=== PATIENT | female | born 1985 | race Caucasian/White ===

== ENCOUNTER 2024-09-12 14:46 | Day surgery (SDC) | payer OTHER, SELFPAY ==
[2024-09-12] VITALS (16 sets, daily range): BP systolic 100–125; BP diastolic 58–82; BMI 28.5; BMI 29.3
--- NOTE | 2024-09-12 09:27 | ED.GENMED ---
History of Present Illness
General
Chief Complaint: Abdominal Symptoms
Source: patient
Exam Limitations: none
Time Seen by Provider: 09/12/24 09:16
Nursing documentation reviewed up to this point in time: agreed with
History of Present Illness
History of Present Illness:
Patient is a 39-year-old female presenting to the emergency department with 12 hours of nausea, vomiting and upper abdominal pain. Patient states symptoms started around 830 last night when she returned from work. She has had persistent nausea,
vomiting, as well as a few episodes of diarrhea since. She is unable to tolerate any p.o. intake. She also endorses mild pain in her right upper abdomen. No radiation of pain into the back. The symptoms started prior to patient eating dinner and
states she had Ramen noodles for lunch at work yesterday. No fevers or chills. Patient denies any dysuria although states her urine is 'cloudy '.
Patient denies any history of similar symptoms. No known sick contacts.
LMP 2 weeks ago
Past History
Past History
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
ED Past Surgical History: Orthopedic
Social History
Tobacco: Non-smoker
Drug: None
Review of Systems
Review of Systems
Allergies reviewed?: Yes
All Other Systems: ROS reviewed and negative except as documented in HPI and ROS
Phy Exam
Physical Exam
Physical Exam:
Vitals: Mildly tachycardic, otherwise vital signs stable. Afebrile
General: Patient is in no acute distress.
Skin: Warm and dry, no rashes or lesions
Head: Normocephalic, atraumatic
Eyes: Sclera nonicteric. EOMs intact. No nystagmus.
Throat: Protecting airway
Neck: Normal ROM, no cervical spine tenderness, no meningismus
Cardiac: Mildly tachycardic, normal rhythm, no murmurs.
Pulm: Normal respiratory effort, no wheezes, rales, rhonchi heard on exam.
Abdomen: Abdomen soft. Mild tenderness in right upper quadrant and right mid abdomen without rebound tenderness or guarding. Negative Jacome sign. No CVA tenderness.
Extremities: No evidence of cyanosis or edema
Neuro: AAOx3. Grossly intact.
Psychiatric: Normal affect.
Course
Orders/Labs/Results
Orders:
Orders
09/12/24 09:26
0.9% Sodium Chloride 1000 ml [Nss] 1,000 ml IV BOLUS
Ketorolac [Toradol] 15 mg IV NOW STA
Ondansetron Injectable [Zofran] 4 mg IV NOW STA
Test Result ONCE
US Abdomen Complete/Upper Urgent
Comment:
Reason For Exam: RUQ pain, N+V
09/12/24 09:30
Complete Blood Count/With Diff Urgent
Comprehensive Metabolic Panel Urgent
HCG, Serum Qualitative Screen Urgent
Lipase Urgent
09/12/24 09:31
Urinalysis Reflex To Culture Urgent
Date Specimen was Collected: 09/12/24
Time Specimen was Collected: 09:30
Urine Microscopic Reflex Cult Urgent
Urine Culture Urgent
VENKATESH Source: U
Specimen Description:
Date Specimen was Collected: 09/12/24
Time Specimen was Collected: 09:30
09/12/24 11:55
CT Abd/pelvis W Iv Cont Urgent
Comment:
Reason For Exam: RLQ pain, +n/+V
09/12/24 13:39
Piperacillin/Tazo 3.375 Gram [Zosyn] 3.375 gram in 50 ml IV NOW
09/12/24 13:53
SURGICAL CONSULT Urgent
Consulting Provider: Bj Flynn
Was physician already notified: Yes
09/12/24 14:54
HYDROmorphone [Dilaudid] 0.25 mg IV PACU-Q5MPRN PRN
HYDROmorphone [Dilaudid] 0.5 mg IV PACU-Q5MPRN PRN
Meperidine [Demerol] 12.5 mg IV PACU-Q5MPRN PRN
Ondansetron Injectable [Zofran] 4 mg IV PACU-ONCEPRN PRN
Notify MD As Directed
Notify physician if: for SDS patients with known or suspected sleep obstructive sleep apnea, monitor in the
PACU.
Notify MD for any apneic/desaturation episodes
O2 Therapy [RESP] Urgent
Titrate/Wean O2 to maintain O2 sat greater than (%): 92
Special Instructions: -Provide supplemental oxygen to achieve O2 sat of 92% or greater.
-After 15 min, may wean O2 and discontinue if patient is able to maintain O2 sat of 92%
or greater during recovery period.
If patient is a discharge home, without oxygen therapy, notify anestheiologist if
unable to maintain O2 SAT of 92% or greater on room air for MD clearance.
09/12/24 Dinner
Regular
Normosol (Mult Electrolytes) [Normosol-R/Plasmalyte-A] 1,000 ml IV PER PROTOCOL
09/12/24 15:35
Bupivacaine 0.5%Pf/Epinephrin [Sensorcain-Mpf Epi 0.5%-0.0005] 30 ml .ROUTE .STK-MED ONE
09/12/24 15:40
OR Pathology Routine
Pre-Operative Diagnosis: Acute Appendicitis
Operative Procedure: Laparoscopic Appendectomy
Surgeon: Gee
Circulating Nurse: Jaqueline
Specimen Type: Appendix
09/12/24 15:52
Fentanyl Citrate/Pf [Sublimaze] 100 mcg .ROUTE .STK-MED ONE
09/12/24 15:59
Lidocaine HCl/Pf [Xylocaine-Mpf 1% Vial] 50 mg .ROUTE .STK-MED ONE
Phenylephrine HCl/0.9% NaCl [Tru-Synephrine] 1,000 mcg .ROUTE .STK-MED ONE
Propofol [Diprivan] 20 ml .ROUTE .STK-MED
Rocuronium [place] [Rocuronium] 50 mg .ROUTE .STK-MED ONE
09/12/24 16:00
Dexamethasone Sod Phosphate [Decadron] 20 mg .ROUTE .STK-MED ONE
Metoclopramide [Reglan] 10 mg .ROUTE .STK-MED ONE
Ondansetron Injectable [Zofran] 4 mg .ROUTE .STK-MED ONE
09/12/24 16:01
Admit Patient As Directed
Co-Sign Provider:
Level of Care: Post Proc/Surg Recovery
Assign to:: Medical/Surgical
Physician / Group: Gee
Diagnosis: Acute appendicitis
Reason for Overnight Stay: Vomiting
Code Status As Directed
Resuscitation Status: Full Code
Acetaminophen [Tylenol] 650 mg PO Q4HPRN PRN
Ketorolac [Toradol] 10 mg IV Q6HPRN PRN
Ondansetron Injectable [Zofran] 4 mg IV Q6HPRN PRN
Oxycodone [Roxicodone] 10 mg PO Q4HPRN PRN
Oxycodone [Roxicodone] 5 mg PO Q4HPRN PRN
Activity As Directed
Activity Level: Out of Bed-Early Mobility
Anti-embolism (YANCI) Hose As Directed
Type: Thigh high
Intake/ Output As Directed
Frequency: Per unit guidelines
Pneumatic Compression Sleeves As Directed
Type: Knee high
Vital Signs As Directed
Frequency: Per unit guidelines
PRN Pain Medication Management As Directed
May give lesser potent ordered pain med per pt: Yes
preference::
Protocol:: Medication orders for pain may be administered in a
manner that supports deferring to patient preference
when the pt is:
- Requesting an ordered lesser potent pain medication.
Least to most potent pain medications are defined
as: acetaminophen < NSAID < tramadol < opioids
(morphine, oxycodone, hydromorphone).
- Requesting a lesser dose of the same medication IF
ORDERED.
- Requesting a less intrusive route of administration
if both routes are prescribed by the provider (PO <
IV).
DX Deep Vein Thrombosis Video Routine
09/12/24 16:02
Rx Incentive Spirometry [RESP] Routine
Frequency: q1h while awake
# of times per hour: 10
09/12/24 16:23
HYDROmorphone [Dilaudid] 1 mg .ROUTE .STK-MED ONE
09/12/24 16:26
Ketorolac [Toradol] 30 mg .ROUTE .STK-MED ONE
09/12/24 16:28
Acetaminophen 1000MG/100Ml [Ofirmev] 1,000 mg in 100 ml .ROUTE .STK-MED
09/12/24 18:00
Enoxaparin Sodium [Lovenox] 40 mg SC QPM
Piperacillin/Tazo 3.375 Gram [Zosyn] 3.375 gram in 50 ml IV Q6H
Abnormal Lab Results
09/12/24 09/12/24
09:30 09:31
WBC 14.3 H 10^3/uL
(4.8-10.8)
MPV 11.1 H fL
(7.4-10.4)
Abs Immat Gran (auto) 0.1 H 10^3/uL
(0-0.05)
Absolute Neuts (auto) 12.7 H 10^3/uL
(1.4-6.5)
Absolute Lymphs (auto) 0.8 L 10^3/uL
(1.2-3.4)
Absolute Monos (auto) 0.8 H 10^3/uL
(0.1-0.6)
Neutrophils % 88.6 H %
(42.2-75.2)
Lymphocytes % 5.5 L %
(20.5-51.1)
Creatinine 0.5 L mg/dL
(0.6-1.0)
Glucose 126 H mg/dl
(70-99)
Ur Occult Blood Reflex 1+ A
(Negative)
Urine RBC 3-6 A /HPF
(0-2)
Urine Bacteria (Reflex) Many A
(Negative)
Urine Albumin (Reflex) 2+ A
(Neg - Trace)
09/12/24 09:30
09/12/24 09:30
Vital Signs
Initial and Last Documented VS:
Initial Vital Signs
Temp Pulse Resp BP Pulse Ox
98.3 F 108 16 120/82 100
09/12/24 09:12 09/12/24 09:12 09/12/24 09:12 09/12/24 09:12 09/12/24 09:12
Last Documented Vital Signs
Temp Pulse Resp BP Pulse Ox
98.6 F 96 14 111/58 99
09/12/24 16:50 09/12/24 17:00 09/12/24 17:00 09/12/24 17:00 09/12/24 17:05
MDM/Problems Addressed
Differential Diagnosis Includes:
Not limited to: Viral gastroenteritis, cholelithiasis, cholecystitis, appendicitis, pancreatitis, etc.
MDM/Problems Addressed:
39-year-old female with 12 hours of nausea, vomiting, and right upper quadrant abdominal pain. Also with few episodes of diarrhea. No fevers or chills. No back pain. Mildly tachycardic, otherwise stable vital signs. She is afebrile on arrival.
Physical exam as above. Differential broad at this time although given nausea, vomiting, and diarrhea�this could be viral gastroenteritis. Given mild tenderness on abdominal exam and right upper quadrant�will obtain abdominal ultrasound to rule
out gallbladder etiology. Will send screening labs. Will give IV fluids, Zofran, Toradol and reassess.
Update: Labs reviewed. Labs with a leukocytosis of 14.3. Chemistry without clinically significant abnormalities. Urine does not appear effected. Ultrasound without any acute findings. On reassessment�while patient symptoms are improved and she
has not had any episodes of vomiting since arrival to ED�she does still have mild tenderness to palpation in right mid abdomen. Given persistent tenderness on palpation�will obtain CT scan to rule out acute intra-abdominal pathology.
Update: CT shows acute appendicitis without perforation or abscess. Case discussed with general surgery, Dr. Flynn who will admit to their service. Patient started on Zosyn in emergency department. Her pain remains under well control. Plan for
n.p.o. and OR later today.
Chronic conditions affecting care:
N/A
Acute Exacerbation and/or Progression of Chronic Illness:
Acute appendicitis
*Radiology
Radiology exam reviewed: radiology read reviewed
*Pulse Oximetry
Patient hypoxic: no
*EKG
Interpreted by ED Provider?: NA
*Catalyst Operator Interpretation
Rate: Catalyst Operator- N/A
*Critical Care Note
Total Time (30-74mins, 75-104mins- exclusive of procedures): Not Applicable
Patient Management
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
Escalation/DeEscalation of care consider admission/obs:
Admit for OR today�appendectomy
ED Attending Note
-
Portions of this chart may have been created with voice recognition software.� Occasional wrong word or��sound alike� substitutions may have occurred due to the inherent limitations of voice recognition software.
Discharge Plan
Departure
Patient Disposition: Admit
Date of Disposition: 09/12/24
Time of Disposition: 13:46
Admit to doctor: Dr. Flynn
Presentation/result/management discussed w/ accepting MD/DO: Surgery
Discharge Problem:
Acute appendicitis
Interventions
Interventions:
*Risk Screen - Suicide Last Done: 09/12/24 09:12
*General Assessment Last Done: 09/12/24 09:12
*Neglect/Abuse Screening Last Done: 09/12/24 09:39
*ED- Fall Risk Assessment Last Done: 09/12/24 10:10
*ED COVID-19 Vaccine History Last Done: 09/12/24 09:12
*Nursing Disposition Last Done: 09/12/24 14:41
HF-Njdfyi-Ylixurrznm Assessment Last Done: 09/12/24 09:39
Discharge Date and Time
Discharge Date/Time: 09/12/24 14:47
[2024-09-12] MEDS: NSS 1000 IV (09:35)
[2024-09-12] MEDS: ZOFRAN 4 MG IV (09:36)
[2024-09-12] MEDS: TORADOL 15 MG IV (09:36)
[2024-09-12 09:48] LABS: % Basophils 0.2 % (0-2); % Immature Granulocytes 0.4 % (0-0.5); % Lymphocytes 5.5 % (20.5-51.1); % Monocytes 5.3 % (1.7-9.3); % Neutrophils 88.6 % (42.2-75.2); Absolute Immature Granulocytes 0.1 10^3/uL (0-0.05); Absolute Lymphocytes 0.8 10^3/uL (1.2-3.4); Absolute Monocytes 0.8 10^3/uL (0.1-0.6); Absolute Neutrophils 12.7 10^3/uL (1.4-6.5); Hematocrit 40.5 % (37.0-47.0); Hemoglobin 13.8 g/dL (12.0-16.0); Mean Corp Hgb Conc. 34.1 g/dL (33.0-37.0); Mean Corpuscular Hgb 27.7 pg (27.0-31.0); Mean Corpuscular Volume 81.3 fL (81.0-99.0); Mean Platelet Volume 11.1 fL (7.4-10.4); Nucleated Red Blood Cells % 0 %; Platelet Count 263 10^3/uL (130-400); Red Blood Cell Count 4.98 10^6/uL (4.20-5.40); Red Cell Dist. Width 13.2 % (11.5-14.5); White Blood Cell Count 14.3 10^3/uL (4.8-10.8)
[2024-09-12 09:57] LABS: Urine Albumin 2+ (Neg - Trace); Urine Bilirubin Negative (Negative); Urine Character Clear (Clear); Urine Color Yellow; Urine Glucose Negative (Negative); Urine Ketone Negative (Negative); Urine Leukocyte Negative (Negative); Urine Nitrite Negative (Negative); Urine Occult Blood 1+ (Negative); Urine Urobilinogen Negative (Neg - 1+)
[2024-09-12 09:59] LABS: HCG, Serum Qualitative Screen Negative
[2024-09-12 10:05] LABS: ALT (SGPT) 23 U/L (0-35); AST (SGOT) 19 U/L (14-36); Albumin 4.3 g/dl (3.5-5.0); Alkaline Phosphatase 58 U/L (38-126); Blood Urea Nitrogen 9 mg/dl (7-17); Calcium 9.2 mg/dl (8.4-10.2); Carbon Dioxide 24 mmol/L (22-30); Chloride 103 mmol/L (98-107); Estimated Creatinine Clearance 118 ml/min; Glucose 126 mg/dl (70-99); Potassium 4.2 mmol/L (3.5-5.1); Sodium 136 mmol/L (135-145); Total Bilirubin 0.8 mg/dl (0.2-1.3); Total Protein 6.5 g/dl (6.3-8.2); eGFR > 60.00
[2024-09-12 10:19] LABS: Lipase 29 U/L (23-300)
[2024-09-12 11:12] LABS: Urine Mucus Many
[2024-09-12 11:13] LABS: Urine Squamous Cell >30 /LPF (Few)
[2024-09-12 11:14] LABS: Urine Amorphous Seen; Urine Urothelial Cell 16-20 /LPF (FEW)
[2024-09-12 11:15] LABS: Urine Bacteria Many (Negative); Urine White Cell 0-2 /HPF (0-5)
[2024-09-12] MEDS: ZOSYN 50 IV ×2 (13:44→20:11)
--- NOTE | 2024-09-12 16:04 | CON.GS ---
Consultation
-
Requesting Provider: olive
Performing Provider: misha
Reason for Consultation: acute appendicitis
Medical History
-
Chief Complaint: nausea
History of Present Illness:
39F wth acute onset n/v that began last night. A/w mild mid abd pain that migrated today to right max abdomen. Progressive and moderate pain today, ongoing n/v/d. Denies f/c. Never had this problem before.
Past Medical History
Past Medical History: Other (neuro fibrosis)
Past Surgical History: Orthopedic
Social History
Tobacco: Non-Smoker
Alcohol: None
Drug: None
Personal: Single
Living: With Family
Employment: Employed
Family History
Family History: Reviewed & Noncontributory
Allergies / Home Medications
Allergy/AdvReac Type Severity Reaction Status Date / Time
Latex, Natural Rubber Allergy Hives Verified 09/12/24 09:15
�Medication �Instructions �Recorded �Confirmed �Type
bismuth subsalicylate 262 mg 2 tab PO DAILYPRN PRN stomach 09/12/24 09/12/24 History
chewable tablet (Pepto-Bismol) issuse
loratadine 10 mg tablet (Claritin) 10 mg PO DAILY 09/12/24 09/12/24 History
Review of Systems
-
A 10 point review of systems was completed, and was negative except as per HPI.
Physical Exam
Vital Signs
Temp Pulse Resp BP Pulse Ox
98.3 F 91 16 107/70 99
09/12/24 09:12 09/12/24 12:22 09/12/24 14:00 09/12/24 12:00 09/12/24 12:22
09/11/24 09/12/24 09/13/24
06:59 06:59 06:59
Actual Weight 70.5 kg
Body Mass Index (BMI) 28.5
Lab Results
09/12/24 09:30
09/12/24 09:30
WBC 14.3 10^3/uL (4.8-10.8) H 09/12/24 09:30
Hgb 13.8 g/dL (12.0-16.0) 09/12/24 09:
Hct 40.5 % (37.0-47.0) 09/12/24 09:
Plt Count 263 10^3/uL (130-400) 09/12/24:30
Abs Immat Gran (auto) 0.1 10^3/uL (0-0.05) H 09/12/24:
Neutrophils % 88.6 % (42.2-75.2) H 09/12/24 09:30
Physical Exam
General: Well Developed and Well Nourished
GI: Soft, Non Distended and Tender (right mid abdomen ttp without guarding, mild)
Skin: Warm and Dry
Neuro: AO x 3
Data Reviewed
-
CT Scan: Image Personally Visualized and interpreted, Report Reviewed by me, Discussed with Physician, Discussed with Patient and Discussed with Family
Labs: Labs Reviewed by me
Assessment / Plan
-
39F with acute appendicitis
AFVSS, ttp right abdomen
Leukocytosis noted
left shift noted
CT with inflamed appendix without signs of perf
Plan:
Admit to surgery
OCTOR for lap appy
zosyn
dvt ppx
--- NOTE | 2024-09-12 16:45 | OR.RPT ---
Operative Report
Operative Report
Primary Surgeon: Gee
Pre-op Diagnosis: Acute appendicitis
Post-op Diagnosis: Same
Procedure Performed: Laparoscopic appendectomy
Anesthesia Type: GETA
Specimen / Cultures: Appendix
Estimated Blood Loss: 20cc
Complications: None immediate
Operative Findings: Inflamed appendix adherent to terminal ileum and pelvic sidewall, no pus, no contamination
Date of Surgery: 09/12/24
Indications: This 39F developed right sided abdominal pain and on workup was found to have acute appendicitis. Laparoscopic appendectomy was elected.
Description of procedure: The patient was placed on the operating table in the supine position. General anesthesia was induced. A time-out was completed verifying correct patient, procedure, site, positioning, and special equipment prior to
beginning this procedure. An orogastric tube was placed. The abdomen was prepped and draped in the usual sterile fashion. A stab incision was made in left upper quadrant and the Veress needle was inserted. Proper position was confirmed by aspiration
and saline meniscus test. The abdomen was insufflated with carbon dioxide to a pressure of 12 mmHg. The patient tolerated insufflation well.
A 5mm optical trocar was then inserted at the left lower quadrant. The laparoscope was inserted and the abdomen inspected. No injuries from initial trocar placement or Veress needle insertion were noted. Additional trocars were then inserted in the
following locations: a 12-mm trocar at the umbilicus and a 5-mm trocar midline in the suprapubic space. The abdomen was inspected and no abnormalities were found. The table was placed in the Trendelenburg position with the right side up. The tip of
the appendix was curled onto itself and densely adherent to pelvic sidewall and terminal ileum. It was getly swept free with blunt dissection. The tip was gently grasped with an atraumatic grasper and retracted toward the patient�s feet and
abdominal wall. This maneuver exposed the appendiceal blood supply which was controlled with the Ligasure device. Following this, a laparoscopic linear cutting stapler with a 45mm benito load was deployed and used to transect the appendix at its base.
The appendix was placed in an endoscopic retrieval bag, removed through the umbilical port, and passed off the table as a specimen.
We then turned our attention to the staple line, which was noted to be hemostatic. The pelvis was inspected and scant turbid fluid was absorbed with a raytec and the raytec was removed without spillage. The umbilical trocar site was closed at the
fascial level laparoscopically with 2-0 PDS under direct vision. Secondary trocars were removed under direct vision and noted to be hemostatic. The laparoscope was withdrawn and the abdomen was allowed to collapse. The skin was closed with
subcuticular sutures of 4-0 monocryl and topical skin adhesive. The orogastric tube was removed.
The patient tolerated the procedure well and was taken to the postanesthesia care unit in stable condition.
[2024-09-12] MEDS: LOVENOX 40 MG SC (20:11)
[2024-09-13] MEDS: ZOSYN 50 IV ×2 (01:16→07:35)
[2024-09-13 03:00] VITALS: BP 105/68
[2024-09-13 07:00] VITALS: BP 115/69
[2024-09-13] MEDS: TYLENOL 650 MG PO (07:38)
[2024-09-13] MEDS: ULTRAM 100 MG PO (08:39)
--- NOTE | 2024-09-13 09:06 | W.PN.GS2 ---
Today's Communication / Plan
-
DC home
Assessment / Plan
-
39F POD1 s/p lap appy for acute appendicitis
Meets criteria for DC
Subjective Data
-
Date of Service: September 13, 2024
AFVSS, ambulating, pain controlled, voiding, aftab PO
Objective Data
-
Intake and Output
09/12/24 09/13/24 09/14/24
06:59 06:59 06:59
Intake Total 515 / 515
Balance 515 / 515
Intake:
Oral fluids 240 / 240
IV fluids (Total) 175 / 175
normosol 175 / 175
IV piggybacks 100 / 100
Other:
Number of approximated MODERATE 2
amounts of urine
Vital Signs
Temp Pulse Resp BP Pulse Ox
98.3 F 84 16 115/69 99
09/13/24 07:00 09/13/24 07:00 09/13/24 07:00 09/13/24 07:00 09/13/24 07:00
Lab Results
09/12/24 09:30
09/12/24 09:30
Calcium 9.2 mg/dl (8.4-10.2) 09/12/24 09:30
Total Bilirubin 0.8 mg/dl (0.2-1.3) 09/12/24 09:30
AST 19 U/L (14-36) 09/12/24 09:30
ALT 23 U/L (0-35) 09/12/24 09:30
Alkaline Phosphatase 58 U/L (38-126) 09/12/24 09:30
Total Protein 6.5 g/dl (6.3-8.2) 09/12/24 09:30
Albumin 4.3 g/dl (3.5-5.0) 09/12/24 09:30
Physical Exam
-
Gen: NAD
Abd: soft, approp ttp, incisions cdi
Patient has a lopez catheter: No
Patient has a central line: No
--- NOTE | 2024-09-13 09:07 | W.DS.TRANS ---
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
-
Discharge Instructions:
Discharge Diagnosis/Procedures Laparoscopic appendectomy for acute appendicitis
Diet No restrictions
Activity No strenuous activity
Driving Restrictions No driving for 24 hours
Bathing Restrictions OK to Shower
Wound Care Allow skin glue to flake off on its own
Instructions: Appendectomy - Discharge instructions
Stand-Alone Forms:
Changes to Home Medications: No
Discharge Medications:
DC Medications w/original date entered in [facility]
bismuth subsalicylate 262 mg chewable tablet (Pepto-Bismol) 2 tab PO DAILYPRN PRN stomach issuse 09/12/24
loratadine 10 mg tablet (Claritin) 10 mg PO DAILY 09/12/24
tramadol 50 mg tablet 50 - 100 mg (1 - 2 x 50 mg) PO Q6H PRN Pain #20 tabs 09/12/24
Home Medication Changes
Pending Results: No
--- NOTE | 2024-09-13 09:48 | PTCARENOTE ---
Pt tolerating tramadol and it is relieving abd pain. Pt tolerating breakfast. Father arriving at 1100 - plan to d/c at that time.
--- NOTE | 2024-09-13 10:31 | CM ---
CM reviewed medical records. Plan for discharge today with no home needs.
PLAN: Home no needs.
[2024-09-13 11:00] VITALS: BP 116/78
== END 2024-09-13 11:40 | disposition home or self-care (01) ==
LOC: PACU 14:46
PROVIDERS: Physician Assistant; ATTENDING PHYSICIAN Surgery; EMERGENCY PHYSICIAN Emergency Medicine
DX: K35.80 Unspecified acute appendicitis (principal); K38.2 Diverticulum of appendix
CPT/HCPCS: 44970; 88304; 74177; 76700; 80053; 81003; 81015; 83690; 84703; 85025; 87086; 96361; 96374; 96375; 99285; C1776; Q9967

== ENCOUNTER 2024-10-02 13:38 | Emergency (ER) | payer OTHER, SELFPAY ==
[2024-10-02 13:41] VITALS: BP 136/76
[2024-10-02 14:14] LABS: % Basophils 0.5 % (0-2); % Eosinophils 0.3 % (0-6); % Immature Granulocytes 1.7 % (0-0.5); % Lymphocytes 10.2 % (20.5-51.1); % Monocytes 7.8 % (1.7-9.3); % Neutrophils 79.5 % (42.2-75.2); Absolute Basophils 0.1 10^3/uL (0-0.2); Absolute Eosinophils 0.1 10^3/uL (0-0.7); Absolute Immature Granulocytes 0.3 10^3/uL (0-0.05); Absolute Lymphocytes 1.9 10^3/uL (1.2-3.4); Absolute Monocytes 1.5 10^3/uL (0.1-0.6); Absolute Neutrophils 15.1 10^3/uL (1.4-6.5); Hematocrit 40.2 % (37.0-47.0); Hemoglobin 13.1 g/dL (12.0-16.0); Mean Corp Hgb Conc. 32.6 g/dL (33.0-37.0); Mean Corpuscular Hgb 27.5 pg (27.0-31.0); Mean Corpuscular Volume 84.5 fL (81.0-99.0); Mean Platelet Volume 10.6 fL (7.4-10.4); Nucleated Red Blood Cells % 0 %; Platelet Count 339 10^3/uL (130-400); Red Blood Cell Count 4.76 10^6/uL (4.20-5.40)
--- NOTE | 2024-10-02 14:44 | ED.GENMED ---
History of Present Illness
General
Chief Complaint: Post Operative Problem(s)
Source: patient
Exam Limitations: none
Time Seen by Provider: 10/02/24 14:30
Nursing documentation reviewed up to this point in time: agreed with
History of Present Illness
History of Present Illness:
Patient to ED with complaint of fever, n/v/d. Symptoms developed overnight. Denies abdominal pain. She is 3 weeks post appendectomy. She had a reaction to the chlorhexidine prep and was placed on a prednisone taper. She finished taper on
Tuesday. Brought to ED by family for eval.
Past History
Past History
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
ED Past Surgical History: Orthopedic
Social History
Tobacco: Non-smoker
Drug: None
Review of Systems
Review of Systems
Allergies reviewed?: Yes
All Other Systems: ROS reviewed and negative except as documented in HPI and ROS
Constitutional: Reports fever and fatigue
EENT: Reports no symptoms
Respiratory: Reports no symptoms
Cardiac: Reports no symptoms
ABD/GI: Reports nausea, vomiting and diarrhea
: Reports no symptoms
Musculoskeletal: Reports no symptoms
Skin: Reports no symptoms
Neurological: Reports headache
Psychiatric: Reports no symptoms
Phy Exam
General Physical Exam
General Presentation: mild distress
General age: appears stated age
General Skin: warm and dry
General Habitus: normal
General Mental: alert
Cardiovascular Exam
Cardiovascular Exam: regular rate/rhythm and no edema
Pulmonary Exam
Pulmonary Exam: lungs clear and no respiratory distress
Gastrointestinal Exam
Gastrointestinal Exam: normal bowel sounds, non tender, soft, no organomegaly, no pulsatile mass and non distended
Neurological Exam
Neurological Exam: alert, oriented x3, CN II-XII intact, no motor deficits, no sensory deficits and speech normal
Musculoskeletal Exam
Musculoskeletal Exam: full ROM and neuro vasc intact
Skin Exam
Skin Exam: normal color, warm/dry and no rash
Psychiatric Exam
Psychiatric Exam: normal mood/affect
Course
Orders/Labs/Results
Orders:
Orders
10/02/24 13:56
Complete Blood Count/With Diff Urgent
Comprehensive Metabolic Panel Urgent
Lipase Urgent
10/02/24 14:40
0.9% Sodium Chloride 1000 ml [Nss] 1,000 ml IV BOLUS
10/02/24 14:43
Acetaminophen 1000MG/100Ml [Ofirmev] 1,000 mg in 100 ml IV ONCE
Acetaminophen IV Indication:: No VA & No Enteral Access
Ondansetron Injectable [Zofran] 4 mg IV NOW STA
10/02/24 15:08
COVID-19 Antigen Urgent
Source: Nasal Swab
Blood Culture Urgent
VENKATES[facility] Source: Blood/Venous
Specimen Description:
Influenza A+B Rapid Molecular Urgent
VENKATES[facility] Source: Nasal Swab
Specimen Description:
10/02/24 15:09
Lactic Acid Urgent
Urinalysis Reflex To Culture Urgent
Date Specimen was Collected: 10/02/24
Time Specimen was Collected: 14:49
Urine Microscopic Reflex Cult Urgent
Urine Culture Urgent
VENKATESH Source: U
Specimen Description:
Date Specimen was Collected: 10/02/24
Time Specimen was Collected: 14:49
10/02/24 16:24
CT Abd/pel W Iv And Oral Contr Urgent
Comment:
Reason For Exam: s/p appendectomy fever n/v/d
Iohexol [Omnipaque] See Protocol PO NOW STA
10/02/24 19:55
Ondansetron Injectable [Zofran] 4 mg IV NOW STA
Abnormal Lab Results
10/02/24 10/02/24
13:56 15:09
WBC 19.0 H 10^3/uL
(4.8-10.8)
MCHC 32.6 L g/dL
(33.0-37.0)
MPV 10.6 H fL
(7.4-10.4)
Abs Immat Gran (auto) 0.3 H 10^3/uL
(0-0.05)
Absolute Neuts (auto) 15.1 H 10^3/uL
(1.4-6.5)
Absolute Monos (auto) 1.5 H 10^3/uL
(0.1-0.6)
Immature Gran % 1.7 H %
(0-0.5)
Neutrophils % 79.5 H %
(42.2-75.2)
Lymphocytes % 10.2 L %
(20.5-51.1)
Creatinine 0.5 L mg/dL
(0.6-1.0)
Glucose 111 H mg/dl
(70-99)
Total Protein 6.0 L g/dl
(6.3-8.2)
Ur Occult Blood Reflex 3+ A
(Negative)
Urine RBC 7-10 A /HPF
(0-2)
Urine Bacteria (Reflex) Moderate A
(Negative)
10/02/24 13:56
10/02/24 13:56
Vital Signs
Initial and Last Documented VS:
Initial Vital Signs
Temp Pulse Resp BP Pulse Ox
97.6 F 75 16 136/76 100
10/02/24 13:41 10/02/24 13:41 10/02/24 13:41 10/02/24 13:41 10/02/24 13:41
Last Documented Vital Signs
Temp Pulse Resp BP Pulse Ox
97.6 F 80 16 125/78 98
10/02/24 13:41 10/02/24 19:58 10/02/24 19:58 10/02/24 19:58 10/02/24 19:58
*Radiology
Radiology exam reviewed: radiology read reviewed
*Pulse Oximetry
Patient hypoxic: no
*Critical Care Note
Total Time (30-74mins, 75-104mins- exclusive of procedures): Not Applicable
Update Note
Update Note:
Patient to ED with complaint of n/v/d. No abdominal pain. SHe is 3 weeks post op appendicitis. Labs reviewed. WBC 19 noted however she just completed a course of prednisone allergic response to chlorehexidine. Lactic normal. I discussed her
presentation wth Dr. Flynn who recommends abd/pelvis CT. CT fidings tonight of colits. No post operative collections noted. Dr. Flynn aware. Patient did well with IVF and zofran. Will discharge home on clear liquids. Given rx for zofran.
Will follow upw tih PCP. SHe was given instructions n s/s to return to ED and she is agreeable to plan.
ED Attending Note
-
Portions of this chart may have been created with voice recognition software.� Occasional wrong word or��sound alike� substitutions may have occurred due to the inherent limitations of voice recognition software.
Discharge Plan
Departure
Patient Disposition: Home (Routine Discharge)
Date of Disposition: 10/02/24
Time of Disposition: 19:55
Patient with high blood pressure during this ER visit?: No
Condition: Good
Covid-19: Not Applicable
Discharge Problem:
Nausea & vomiting, Colitis
Instructions: Nausea and vomiting in adults, Clear Liquid Diet
Prescriptions:
New
ondansetron 4 mg tablet,disintegrating
4 mg PO Q4H PRN (Reason: nausea and vomiting) Qty: 12 0RF
No Action
bismuth subsalicylate [Pepto-Bismol] 262 mg Tablet,Chewable
2 tab PO DAILYPRN PRN (Reason: stomach issuse)
loratadine [Claritin] 10 mg Tablet
10 mg PO DAILY
tramadol 50 mg tablet
50 - 100 mg PO Q6H PRN (Reason: Pain) Qty: 20 0RF
Referrals:
NONE,* [Family Provider] -
Stand Alone Forms: Return to Work
Activity Restrictions/Additional Instructions:
Follow up with Dr. Flynn as scheduled. Return to the emergency department immediately for any changes in/worsening of your symptoms
Interventions
Interventions:
*Risk Screen - Suicide Last Done: 10/02/24 13:41
*General Assessment Last Done: 10/02/24 13:41
*Neglect/Abuse Screening Last Done: 10/02/24 15:10
*ED- Fall Risk Assessment Last Done: 10/02/24 15:10
*ED COVID-19 Vaccine History Last Done: 10/02/24 15:10
*Nursing Disposition Last Done: 10/02/24 20:30
ED-Skin Assessment Last Done: 10/02/24 15:34
Discharge Date and Time
Discharge Date/Time: 10/02/24 20:30
Print Language: PANAMANIAN
[2024-10-02 14:45] LABS: ALT (SGPT) 27 U/L (0-35); AST (SGOT) 20 U/L (14-36); Albumin 3.9 g/dl (3.5-5.0); Alkaline Phosphatase 62 U/L (38-126); Blood Urea Nitrogen 11 mg/dl (7-17); Calcium 8.8 mg/dl (8.4-10.2); Carbon Dioxide 24 mmol/L (22-30); Chloride 105 mmol/L (98-107); Glucose 111 mg/dl (70-99); Lipase 70 U/L (23-300); Potassium 3.9 mmol/L (3.5-5.1); Sodium 139 mmol/L (135-145); Total Bilirubin 0.6 mg/dl (0.2-1.3); eGFR > 60.00
[2024-10-02] MEDS: NSS 1000 IV (15:12)
[2024-10-02] MEDS: OFIRMEV 100 IV (15:12)
[2024-10-02] MEDS: ZOFRAN 4 MG IV ×2 (15:13→20:04)
[2024-10-02 15:37] LABS: Urine Albumin Negative (Neg - Trace); Urine Bilirubin Negative (Negative); Urine Character Clear (Clear); Urine Color Yellow; Urine Glucose Negative (Negative); Urine Ketone Negative (Negative); Urine Leukocyte Negative (Negative); Urine Nitrite Negative (Negative); Urine Occult Blood 3+ (Negative); Urine Specific Gravity 1.015 (<1.030); Urine Urobilinogen Negative (Neg - 1+)
[2024-10-02 15:48] LABS: Lactic Acid 1.6 mmol/L (0.7-2.0)
[2024-10-02 15:50] LABS: COVID-19 Antigen Negative (Negative)
[2024-10-02 16:31] LABS: Urine Bacteria Moderate (Negative); Urine Squamous Cell >30 /LPF (Few)
[2024-10-02] MEDS: OMNIPAQUE 50 ML PO (16:41)
[2024-10-02 19:58] VITALS: BP 125/78
== END 2024-10-02 20:30 | disposition home or self-care (01) ==
LOC: EMR 13:38
PROVIDERS: Nurse Practitioner; Student in an Organized Health Care Education/Training Program; EMERGENCY PHYSICIAN Emergency Medicine
DX: K52.9 Noninfective gastroenteritis and colitis, unspecified (principal); R50.9 Fever, unspecified; Z90.49 Acquired absence of other specified parts of digestive tract; Z11.52 Encounter for screening for COVID-19
CPT/HCPCS: 96374; 96375; 96376; 96361; 99284; 74177; 80053; 81003; 81015; 83605; 83690; 85025; 87040; 87086; 87502; 87811; Q9967

== ENCOUNTER 2025-05-19 09:41 | Emergency (ER) | payer OTHER, SELFPAY ==
[2025-05-19 09:43] VITALS: BP 133/81
--- NOTE | 2025-05-19 11:21 | ED.GENMED ---
History of Present Illness
General
Chief Complaint: Dental Problem
Source: patient
Time Seen by Provider: 05/19/25 11:12
History of Present Illness
History of Present Illness:
39-year-old femaleWith no significant past medical history presents to the emergency department for evaluation of what she believes to be a left upper gumline abscess after she started to notice some pain and swelling to the area yesterday
afternoon, today states the swelling seems to be a little bit better but still with the pain and discomfort. She was able to make an appointment with her dentist for this coming Tuesday but felt she needed more urgent evaluation. She denies any
fevers or other infectious symptoms. She denies any history of similar. She did not take any meds prior to arrival.
Past History
Past History
ED Past Medical History: Asthma and Other (Neuro fibrosis)
ED Past Surgical History: Appendectomy and Orthopedic
Social History
Tobacco: Non-smoker
Alcohol: None
Drug: None
Personal: Single
Living: with family
Review of Systems
Review of Systems
All Other Systems: ROS reviewed and negative except as documented in HPI and ROS
Phy Exam
Physical Exam
Physical Exam:
GENERAL: Alert , in no apparent distress
EYE: conjunctiva clear
Head: Normocephalic atraumatic
NECK: Supple,
ENT: mmm. Dental caries throughout, posterior molar in the upper left jaw down to gum line without abscess. STS left buccal region, no overlying erythema, no crepitus
LUNGS: no acute respiratory distress
NEUROLOGICAL: Alert and oriented
SKIN: Warm and dry, skin intact.
MUSCULOSKELETAL: well perfused.
PSYCH: Normal and appropriate interaction.
Scores
Heart Failure Risk
Heart Failure Risk Score: Not Applicable
Heart Score for Chest Pain Patients
STEMI patient?: Not applicable
Withdrawal Assessment of Alcohol
Withdrawal Assessment Completed?: Not applicable
Course
Vital Signs
Initial and Last Documented VS:
Initial Vital Signs
Temp Pulse Resp BP Pulse Ox
98.8 F 93 18 133/81 97
05/19/25 09:43 05/19/25 09:43 05/19/25 09:43 05/19/25 09:43 05/19/25 09:43
Last Documented Vital Signs
Temp Pulse Resp BP Pulse Ox
98.8 F 93 18 133/81 97
05/19/25 09:43 05/19/25 09:43 05/19/25 09:43 05/19/25 09:43 05/19/25 11:22
MDM/Problems Addressed
Differential Diagnosis Includes:
Dental Caries
Dental Abscess
Facial Cellulitis
No suspicion for Ludwigs Angina
Sinusitis
MDM/Problems Addressed:
39-year-old female presenting to the ER for evaluation of left facial edema and dental pain. Exam reveals multiple dental caries throughout multiple teeth, the posterior left upper molar is eroded to the gumline, no obvious topical abscess noted.
Will initiate patient on antibiotics. Dental hygiene discussed. Patient with an appointment already arranged for this coming Tuesday. Advised on return precautions to the ER.
*Pulse Oximetry
SaO2: 97
Oxygen Mode of Delivery: Room air
Patient hypoxic: no
*Critical Care Note
Total Time (30-74mins, 75-104mins- exclusive of procedures): Not Applicable
Data Reviewed
Further Testing Considered But Not Given:
I did consider ordering a CT of the facial region however this would be unlikely to change patient's ultimate disposition/treatment plan
ED Attending Note
-
Portions of this chart may have been created with voice recognition software.� Occasional wrong word or��sound alike� substitutions may have occurred due to the inherent limitations of voice recognition software.
Discharge Plan
Departure
Patient Disposition: Home (Routine Discharge)
Date of Disposition: 05/19/25
Time of Disposition: 11:21
Patient with high blood pressure during this ER visit?: No
Discharge Problem:
Dental caries
Instructions: Tooth Decay, Adult (DC)
Prescriptions:
New
amoxicillin-pot clavulanate 875-125 mg tablet
1 tab PO BID 7 Days Qty: 14 0RF
No Action
bismuth subsalicylate [Pepto-Bismol] 262 mg Tablet,Chewable
2 tab PO DAILYPRN PRN (Reason: stomach issuse)
loratadine [Claritin] 10 mg Tablet
10 mg PO DAILY
tramadol 50 mg tablet
50 - 100 mg PO Q6H PRN (Reason: Pain) Qty: 20 0RF
ondansetron 4 mg tablet,disintegrating
4 mg PO Q4H PRN (Reason: nausea and vomiting) Qty: 12 0RF
Interventions
Interventions:
*Risk Screen - Suicide Last Done: 05/19/25 09:43
*General Assessment Last Done: 05/19/25 09:43
*Neglect/Abuse Screening Last Done: 05/19/25 09:43
*ED- Fall Risk Assessment Last Done: 05/19/25 11:06
*ED COVID-19 Vaccine History Last Done: 05/19/25 11:06
*ED Influenza Vaccine History Last Done: 05/19/25 11:06
*Nursing Disposition Last Done: 05/19/25 11:36
Discharge Date and Time
Discharge Date/Time: 05/19/25 11:36
Print Language: MONGOLIAN
== END 2025-05-19 11:36 | disposition home or self-care (01) ==
LOC: EMR 09:41
PROVIDERS: EMERGENCY PHYSICIAN Emergency Medicine
DX: K02.9 Dental caries, unspecified (principal); J45.909 Unspecified asthma, uncomplicated
CPT/HCPCS: 99282